=== PATIENT | male | born 1980 | race Caucasian/White ===

== ENCOUNTER 2019-01-18 20:27 | Emergency (ER) | payer OTHER ==
[~2019-01-18] VITALS: Ht 182.9 cm; Wt 81.7 kg
[~2019-01-18 20:27] MED LIST: BACTRIM DS TAB1 EACH PO; CLEOCIN HCL150 MG PO; DOXYCYCLINE 10100 MG PO; HYDROCODON-ACE1 EAC7 PO; KEFLEX500 MG PO; NOHOMEMEDICATIONS; NORCO 5-325 TA1 EACH PO; PROTONIX40 MG PO; ULTRAM 50MG TAB50 MG PO; ZOFRAN ODT4 MG PO
[2019-01-18 21:57] VITALS: BP 131/92
== END 2019-01-18 21:58 | disposition left against medical advice (07) ==
LOC: ER 20:27
DX: M79.602 Pain in left arm (principal); R07.89 Other chest pain; F17.210 Nicotine dependence, cigarettes, uncomplicated; Z88.0 Allergy status to penicillin; Z88.1 Allergy status to other antibiotic agents

== ENCOUNTER 2019-11-02 09:45 | Emergency (ER) | payer OTHER ==
[~2019-11-02] VITALS: Ht 177.8 cm; Wt 88.5 kg
[2019-11-02 09:59] LABS: URINE BILIRUBIN NEGATIVE (Negative); URINE BLOOD TRACE (Negative); URINE CLARITY CLEAR; URINE COLOR YELLOW; URINE GLUCOSE-RANDOM* NEGATIVE (Negative); URINE KETONES NEGATIVE (Negative); URINE LEUKOCYTES-REFLEX NEGATIVE (Negative); URINE NITRITE-REFLEX NEGATIVE (Negative); URINE PROTEIN (DIPSTICK) NEGATIVE (Negative); URINE SPECIFIC GRAVITY 1.025 (1.005-1.035); URINE UROBILINOGEN 0.2 E.U./dl (0.2-1.0)
[2019-11-02] MEDS ORDERED: CLONAZEPAM0.125 MG PO (10:00)
[2019-11-02] MEDS ORDERED: FLOMAX0.4 MG PO (10:00)
[2019-11-02] MEDS ORDERED: NAPROSYN500 MG PO (11:58)
[2019-11-02 12:09] VITALS: BP 132/78
== END 2019-11-02 12:09 | disposition home or self-care (01) ==
LOC: ER 09:45
PROVIDERS: Emergency Medicine
DX: N50.3 Cyst of epididymis (principal); R10.30 Lower abdominal pain, unspecified; R30.0 Dysuria; M47.9 Spondylosis, unspecified; F17.210 Nicotine dependence, cigarettes, uncomplicated; Z79.899 Other long term (current) drug therapy; Z88.1 Allergy status to other antibiotic agents; Z88.0 Allergy status to penicillin

== ENCOUNTER 2019-11-15 18:53 | Emergency (ER) | payer OTHER ==
[~2019-11-15] VITALS: Ht 177.8 cm; Wt 86.2 kg
[~2019-11-15 18:53] MED LIST changes: +CLONAZEPAM0.125 MG PO; +FLOMAX0.4 MG PO; +NAPROSYN500 MG PO
[2019-11-15 19:24] LABS: ABSOLUTE NEUTROPHILS 4.1 thou/uL (1.4-8.2); BASOPHILS 0.6 % (0.0-2.0); EOSINOPHILS 0.9 % (0.0-3.0); HEMATOCRIT 46.5 % (42.0-52.0); HEMOGLOBIN 16.1 gm/dL (14.0-18.0); LYMPHOCYTES 36.4 % (24.0-44.0); MCH 31.3 pg (26.0-34.0); MCHC 34.6 g/dL (28.0-37.0); MCV 90.6 fL (80.0-100.0); PLATELET COUNT 269 thou/uL (150-400); POLYS 53.1 % (36.0-66.0); RBC 5.13 mil/uL (4.50-6.00); RDW 13.5 % (10.5-14.5); WBC 7.8 thou/uL (4.0-11.0)
[2019-11-15 19:39] LABS: CALCIUM 9.5 mg/dL (8.5-10.1); CREATININE 1.1 mg/dL (0.7-1.3); POTASSIUM 3.7 mmol/L (3.5-5.1)
[2019-11-15 19:44] LABS: ALBUMIN 4.5 g/dL (3.4-5.0); TOTAL BILIRUBIN 0.3 mg/dL (<0.1-1.0); TOTAL PROTEIN 7.6 g/dL (6.4-8.2)
[2019-11-15 20:27] LABS: URINE BILIRUBIN NEGATIVE (Negative); URINE BLOOD NEGATIVE (Negative); URINE CLARITY CLEAR; URINE COLOR YELLOW; URINE GLUCOSE-RANDOM* NEGATIVE (Negative); URINE KETONES NEGATIVE (Negative); URINE LEUKOCYTES-REFLEX NEGATIVE (Negative); URINE NITRITE-REFLEX NEGATIVE (Negative); URINE PROTEIN (DIPSTICK) NEGATIVE (Negative); URINE SPECIFIC GRAVITY >= 1.030 (1.005-1.035); URINE UROBILINOGEN 0.2 E.U./dl (0.2-1.0)
[2019-11-15 20:43] LABS: APTT 25.3 Seconds (24.5-32.8); PROTIME 9.7 Seconds (9.3-11.4)
[2019-11-15] MEDS ORDERED: PRILOSEC OTC20 MG PO (20:54)
[2019-11-15] MEDS ORDERED: ONDANSETRON ODT8 MG PO (20:54)
[2019-11-15 21:03] VITALS: BP 159/81
--- NOTE | 2019-11-16 09:42 | EKG ---
[facility] [place] [address] ELECTROCARDIOGRAM REPORT Name: DANITZA LARSEN Room #: DEP [facility]#: [id number] Admission: 11/15/19 Attend Phys: Discharge: 11/15/19 Date of : 80 Report #: [id number] THIS REPORT FOR: cc: TONI - Jennifer family physician/PCP TONI - Jennifer family physician/PCP Yunier Gupta MD ~ THIS REPORT FOR: //name// [facility] ED Test Date: 2019-11-15 Test Time: 19:58:40 Pat Name: DANITZA LARSEN Department: Room: Gender: Bridge Builder: [place] : 1980 Requested By: Juvenal Desai Order Number: [id number] MD: Yunier Gupta Measurements Intervals Tolar Rate: 74 P: 52 AR: 216 QRS: 71 QRSD: 98 T: 41 QT: 376 QTc: 418 Interpretive Statements Sinus rhythm ST elev, probable normal early repol pattern No previous ECG available for comparison Electronically Signed On 11-16-2019 9:41:40 CDT by Yunier Gupta [email or web address] <ELECTRONICALLY SIGNED> By: Yunier Gupta MD 11/16/19 0941 57 57 Yunier Gupta MD /VINNY
== END 2019-11-15 21:15 | disposition home or self-care (01) ==
LOC: ER 18:53
PROVIDERS: Emergency Medicine
DX: R10.12 Left upper quadrant pain (principal); R11.0 Nausea; R14.2 Eructation; N50.3 Cyst of epididymis; F17.210 Nicotine dependence, cigarettes, uncomplicated; Z79.899 Other long term (current) drug therapy; Z88.0 Allergy status to penicillin; Z88.1 Allergy status to other antibiotic agents

== ENCOUNTER 2020-02-11 09:25 | Emergency (ER) | payer OTHER ==
[~2020-02-11] VITALS: Ht 177.8 cm; Wt 83.5 kg
[~2020-02-11 09:25] MED LIST changes: +ONDANSETRON ODT8 MG PO; +PRILOSEC OTC20 MG PO
[2020-02-11 09:30] VITALS: BP 133/90
[2020-02-11] MEDS ORDERED: LISINOPRIL-HCT1 EAC2 PO (09:35)
[2020-02-11] MEDS ORDERED: NORVASC10 MG PO (09:35)
== END 2020-02-11 10:12 | disposition home or self-care (01) ==
LOC: ER 09:25
DX: K14.6 Glossodynia (principal); R22.1 Localized swelling, mass and lump, neck; I10 Essential (primary) hypertension; Z79.899 Other long term (current) drug therapy; Z88.1 Allergy status to other antibiotic agents; Z88.0 Allergy status to penicillin; Z87.891 Personal history of nicotine dependence

== ENCOUNTER → 2020-03-10 | Outpatient (CLI) | payer OTHER ==
[~2020-03-10] MED LIST changes: +FLONASE 0.05%50 MCG NASAL; +LISINOPRIL-HCT1 EAC2 PO; +NORVASC10 MG PO; +ZYRTEC10 M4 PO
== END ==
LOC: LAB 07:59
PROVIDERS: ATTEND Student in an Organized Health Care Education/Training Program
DX: Z01.812 Encounter for preprocedural laboratory examination (principal); Z11.59 Encounter for screening for other viral diseases

== ENCOUNTER 2020-03-15 06:02 | Day surgery (SDC) | payer OTHER ==
[~2020-03-15] VITALS: Ht 177.8 cm; Wt 83.0 kg
--- NOTE | ~2020-03-15 | O ---
[facility] [place] [address] OPERATIVE REPORT Name: DANITZA LARSEN Room #: 150-1 [facility]#: [id number] Admission: 03/15/20 Attend Phys: Lucio Bernstein MD Discharge: Date of : 80 Report #: [id number] THIS REPORT FOR: cc: Esteban Burnett MD, George C. MD Shapiro,Lucio Moss MD ~ CC: Esteban Bernstein DATE OF SERVICE: 03/15/2020 PREOPERATIVE DIAGNOSES: Deviated nasal septum with nasal airway obstruction. POSTOPERATIVE DIAGNOSES: Deviated nasal septum with nasal airway obstruction. OPERATIVE PROCEDURE: Nasal septoplasty. ANESTHESIA: General by laryngeal mask. DESCRIPTION OF PROCEDURE: The patient was taken to the operating room and placed in a supine position. General anesthesia was induced by laryngeal mask. Once adequate general anesthesia was obtained, local nasal anesthesia was induced by submucoperichondrial injection of 1% lidocaine with 1:100,000 epinephrine and topical application of cocaine solution. The patient was then draped in a sterile manner. The patient had a nasal septal deviation primarily to the left side. A hemitransfixion incision was placed on the left side of the nose and the mucoperichondrium and mucoperiosteum were elevated off of the septum. The cartilage was incised in front of the bony cartilaginous junction and a portion of cartilage and bone was removed from the midportion of the septum. There was a large septal spur along the floor consisting of hypertrophic cartilage and a fracture of the maxillary crest. The cartilage was removed as a long strip. The maxillary crest was infractured and rongeured. After these maneuvers, the septum sat more in the midline. The hemitransfixion incision was then closed with 4-0 chromic suture and a 4-0 plain mattress suture placed as well. The patient tolerated the procedure well. Blood loss was approximately 5 mL. The patient was then awoken and taken to recovery room in stable condition for postoperative monitoring. By: 0827 [id number] Lucio Bernstein MD /lowell
[2020-03-15 07:03] LABS: CALCIUM 8.8 mg/dL (8.5-10.1); POTASSIUM 4.1 mmol/L (3.5-5.1)
[2020-03-15 07:19] VITALS: BP 125/65
--- NOTE | 2020-03-15 08:15 | H ---
[place] [address] HISTORY AND PHYSICAL Name: DANITZA LARSEN Room #: 150-1 [facility]#: [id number] Admission: 03/15/20 Attend Phys: Lucio Bernstein MD Discharge: Date of : 80 Report #: [id number] THIS REPORT FOR: cc: Esteban Burnett MD,Esteban Bernstein,Lucio Moss MD ~ CC: Esteban Bernstein His procedure is scheduled for the 03/15/2020. HISTORY OF PRESENT ILLNESS: The patient has noted that he has difficulty breathing through his nose. He has a lot of postnasal drainage and he gets frequent sinus infections. He was worked up with a CT scan of his sinuses which shows a severely deviated nasal septum to the left side with protrusion on the anterior cartilaginous septum into the right nasal vestibule. His sinuses were clear. PAST MEDICAL HISTORY: Otherwise, significant for high blood pressure. MEDICATIONS: Include lisinopril, amlodipine, HCTZ, Flomax. ALLERGIES: He is allergic to AMOXICILLIN. PHYSICAL EXAMINATION: He has a very severely deviated nasal septum to the left side with the septum almost touching the lateral wall of the nose with congestion and drainage. His oropharynx and oral cavity were clear. IMPRESSION: Deviated nasal septum with nasal airway obstruction. PLAN: Nasal septoplasty. <ELECTRONICALLY SIGNED> By: Lucio Bernstein MD 03/15/20 0815 [id number] [id number] Lucio Bernstein MD /lowell
== END 2020-03-15 09:35 | disposition home or self-care (01) ==
LOC: OR 06:02 → TBA 06:02 → OR 09:35
PROVIDERS: ATTEND Otolaryngology
DX: J34.2 Deviated nasal septum (principal); J34.89 Other specified disorders of nose and nasal sinuses; I10 Essential (primary) hypertension; F17.210 Nicotine dependence, cigarettes, uncomplicated; Z98.890 Other specified postprocedural states; Z79.899 Other long term (current) drug therapy; Z88.0 Allergy status to penicillin; Z88.8 Allergy status to other drugs, medicaments and biological substances
CPT/HCPCS: 50010; 50101; 50386; 50398; 56524; 56528; 62110; 62900; 64037; 70005

== ENCOUNTER 2020-04-16 19:47 | Emergency (ER) | payer OTHER ==
[~2020-04-16] VITALS: Ht 177.8 cm; Wt 82.6 kg
[2020-04-16 19:50] VITALS: BP 132/91
[2020-04-16] MEDS ORDERED: IBUPROFEN 600600 M1 PO (20:32)
== END 2020-04-16 20:44 | disposition home or self-care (01) ==
LOC: ER 19:47
DX: S90.121A Contusion of right lesser toe(s) without damage to nail, initial encounter (principal); I10 Essential (primary) hypertension; Z87.891 Personal history of nicotine dependence; Z88.1 Allergy status to other antibiotic agents; Z88.0 Allergy status to penicillin; Z79.899 Other long term (current) drug therapy; Z98.890 Other specified postprocedural states; W22.8XXA Striking against or struck by other objects, initial encounter; Y93.89 Activity, other specified; Y92.89 Other specified places as the place of occurrence of the external cause; Y99.9 Unspecified external cause status

== ENCOUNTER 2020-11-03 11:02 | Emergency (ER) | payer OTHER ==
[~2020-11-03] VITALS: Ht 177.8 cm; Wt 77.1 kg
[~2020-11-03 11:02] MED LIST changes: +IBUPROFEN 600600 M1 PO
[2020-11-03] MEDS ORDERED: PRINIVIL20 MG PO (11:13)
[2020-11-03] MEDS ORDERED: MELOXICAM15 MG PO (11:13)
[2020-11-03] MEDS ORDERED: HYDROCHLOROTHIA25 M1 PO (11:14)
[2020-11-03] MEDS ORDERED: NORCO5 PO (13:52)
[2020-11-03] MEDS ORDERED: CYCLOBENZAPRINE5 MG PO (13:52)
[2020-11-03 14:15] VITALS: BP 144/93
== END 2020-11-03 14:15 | disposition home or self-care (01) ==
LOC: ER 11:02
DX: S30.0XXA Contusion of lower back and pelvis, initial encounter (principal); I10 Essential (primary) hypertension; Z79.899 Other long term (current) drug therapy; Z87.891 Personal history of nicotine dependence; Z88.0 Allergy status to penicillin; Z88.1 Allergy status to other antibiotic agents; X58.XXXA Exposure to other specified factors, initial encounter; Y93.89 Activity, other specified; Y92.89 Other specified places as the place of occurrence of the external cause; Y99.8 Other external cause status

== ENCOUNTER 2021-01-02 11:13 | Emergency (ER) | payer OTHER ==
[~2021-01-02] VITALS: Ht 177.8 cm; Wt 78.0 kg
[~2021-01-02 11:13] MED LIST changes: +CYCLOBENZAPRINE5 MG PO; +HYDROCHLOROTHIA25 M1 PO; +MELOXICAM15 MG PO; +NORCO5 PO; +PRINIVIL20 MG PO
[2021-01-02 11:17] VITALS: BP 127/85
== END 2021-01-02 11:51 | disposition home or self-care (01) ==
LOC: ER 11:13
DX: G89.18 Other acute postprocedural pain (principal); I10 Essential (primary) hypertension; M19.90 Unspecified osteoarthritis, unspecified site; G43.909 Migraine, unspecified, not intractable, without status migrainosus; F17.210 Nicotine dependence, cigarettes, uncomplicated; Z98.890 Other specified postprocedural states

== ENCOUNTER 2021-01-16 13:11 | Emergency (ER) | payer OTHER ==
[~2021-01-16] VITALS: Ht 177.8 cm; Wt 78.9 kg
[2021-01-16 13:17] VITALS: BP 123/81
== END 2021-01-16 13:54 | disposition home or self-care (01) ==
LOC: ER 13:11
DX: M96.830 Postprocedural hemorrhage of a musculoskeletal structure following a musculoskeletal system procedure (principal); I10 Essential (primary) hypertension; Z87.891 Personal history of nicotine dependence; Z79.899 Other long term (current) drug therapy; Z98.890 Other specified postprocedural states

== ENCOUNTER 2021-08-18 15:06 | Emergency (ER) | payer OTHER ==
[~2021-08-18] VITALS: Ht 177.8 cm; Wt 77.1 kg
[2021-08-18 16:51] LABS: URINE BILIRUBIN NEGATIVE (Negative); URINE BLOOD NEGATIVE (Negative); URINE CLARITY CLEAR; URINE COLOR YELLOW; URINE GLUCOSE-RANDOM* NEGATIVE (Negative); URINE KETONES NEGATIVE (Negative); URINE NITRITE-REFLEX NEGATIVE (Negative); URINE PROTEIN (DIPSTICK) NEGATIVE (Negative); URINE UROBILINOGEN 0.2 E.U./dl (0.2-1.0)
[2021-08-18 16:52] LABS: URINE LEUKOCYTES-REFLEX 1+ (Negative)
[2021-08-18 17:03] LABS: AMP/METHAMP Negative (Negative); BARBITURATES Negative (Negative); BENZODIAZEPINES Negative (Negative); COCAINE Negative (Negative); METHADONE Negative (Negative); OPIATES Negative (Negative); PCP Negative (Negative)
[2021-08-18 17:11] LABS: BACTERIA-REFLEX 1-9 Few /HPF (None Seen); CASTS None Seen /LPF (None Seen); CRYSTALS None Seen /LPF (None Seen); SQUAMOUS None Seen /LPF (0-3); URINE RBC None Seen /HPF (NONE SEEN); URINE WBC-REFLEX 6-15 Few /HPF (0-5)
[2021-08-18 17:33] LABS: HEMOGLOBIN 14.7 gm/dL (14.0-18.0); MCH 30.6 pg (26.0-34.0); MCHC 34.2 g/dL (28.0-37.0); MCV 89.6 fL (80.0-100.0); RBC 4.8 mil/uL (4.50-6.00); RDW 13.2 % (10.5-14.5); WBC 5.6 thou/uL (4.0-11.0)
[2021-08-18 17:42] LABS: ANION GAP 11 mmol/L (7-16); BUN 11 mg/dL (7-18); CHLORIDE 104 mmol/L (98-107); CO2 23 mmol/L (21-32); GLUCOSE 105 mg/dL (74-106); POTASSIUM 4.1 mmol/L (3.5-5.1); SODIUM 138 mmol/L (136-145)
[2021-08-18 17:48] LABS: ALBUMIN 4.3 g/dL (3.4-5.0); SGOT 11 U/L (15-37); SGPT 21 U/L (16-63); TOTAL BILIRUBIN 0.3 mg/dL (0.2-1.0); TOTAL PROTEIN 7.4 g/dL (6.4-8.2)
[2021-08-19] MEDS ORDERED: SEROQUEL 50 MG50 MG PO (00:10)
[2021-08-19 09:33] VITALS: BP 131/91
== END 2021-08-19 09:33 ==
LOC: ER 15:06
PROVIDERS: Nurse Practitioner Family
DX: N39.0 Urinary tract infection, site not specified (principal); Z20.822 Contact with and (suspected) exposure to COVID-19; R45.851 Suicidal ideations